=== PATIENT | male | born 1945 | race Caucasian/White ===

== ENCOUNTER 2019-03-29 21:06 | Emergency (ER) | payer MEDICARE, OTHER ==
[~2019-03-29] VITALS: Ht 180.3 cm; Wt 77.1 kg
[2019-03-29 21:20] VITALS: BP 130/66
[2019-03-29] MEDS ORDERED: IBUPROFEN 800 MG (MOTRIN) TAB PO STA (21:26)
[2019-03-29] MEDS ORDERED: NS IV 1000 ML 1,000 ML IV SCH (21:26)
[2019-03-29] MEDS ORDERED: ACETAMINOPHEN 500 MG TAB (TYLENOL) PO PRN (21:30)
--- NOTE | 2019-03-29 21:35 | ED GU-Male ---
General Chief Complaint: - Urinary Stated Complaint: PAIN WHEN URINATING Source: patient, spouse History of Present Illness Date Seen by Provider: Mar 29, 2019 Time Seen by Provider: 21:10 Initial Comments PT ARRIVES VIA POV FROM HOME C/O PAINFUL URINATION, URGENCY, FREQUENCY, SMALL AMOUNTS AND INCONTINENCE HAS HAD DIARRHEA X 2 NO NAUSEA OR VOMITING NO ABDOMINAL PAIN NO BACK PAIN HAS HAD CHILLS AND SUBJECTIVE FEVER--TEMP WAS 101.4 ON ARRIVAL TO ER --STATES HE WAS EVEN HOTTER AT HOME THAN HE IS NOW SYMPTOMS BEGAN AT 1700--STATES HE HAS BEEN FINE ALL DAY HAS NOT TAKEN ANYTHING FOR SYMPTOMS NO HISTORY OF BLADDER, KIDNEY OR PROSTATE PROBLEMS PCP: [facility] IN [place]. DR. Raiza ELIZABETH. Allergies and Home Medications Allergies Coded Allergies: codeine (Verified Allergy, Unknown, 03/29/19) Review of Systems Review of Systems Constitutional: chills, fever, malaise, weakness EENTM: no symptoms reported Respiratory: no symptoms reported; No cough, No short of breath Cardiovascular: no symptoms reported; No chest pain, No edema, No palpitations, No syncope Gastrointestinal: see HPI; No abdominal pain; diarrhea; No loss of appetite, No nausea, No vomiting Genitourinary: see HPI, burning, dysuria, frequency; denies flank pain, denies hematuria; incontinence, pain, urgency Musculoskeletal: no symptoms reported; No back pain, No joint pain Skin: no symptoms reported; No rash Psychiatric/Neurological: No Symptoms Reported Endocrine: No Symptoms Reported Hematologic/Lymphatic: No Symptoms Reported Past [place]-Ipkxpk-Yxltbm Hx Patient Social History Alcohol Use: Denies Use Recreational Drug Use: No Smoking Status: Never a Smoker Recent Foreign Travel: No Contact w/Someone Who Travel: No Past Medical History Surgeries: Yes (LEFT ANKLE FX/ ORIF; INGUINAL HERNIA REPAIR) Abdominal, Orthopedic Respiratory: No Cardiac: Yes High Cholesterol Neurological: No Genitourinary: No Gastrointestinal: Yes Gastroesophageal Reflux Musculoskeletal: Yes (LEFT ANKLE FX/ ORIF) Fractures Endocrine: Yes (VITAMIN D DEFICIENCY) HEENT: No Cancer: No Psychosocial: No Integumentary: No Blood Disorders: No Physical Exam Vital Signs Vital Signs - First Documented 03/29/19 21:10 Temp 101.4 Pulse 87 Resp 18 B/P (MAP) 130/66 (87) Pulse Ox 96 Capillary Refill : Height, Weight, BMI Height: '" Weight: lbs. oz. kg; BMI Method: General Appearance: WD/WN, no apparent distress HEENT: PERRL/EOMI, other (DENTURES) Neck: normal inspection Cardiovascular: regular rate, rhythm, no edema, no JVD, no murmur Respiratory: normal breath sounds, no respiratory distress, no accessory muscle use Gastrointestinal: normal bowel sounds, non tender, soft, no organomegaly, no pulsatile mass Back: normal inspection, no CVA tenderness Extremities: normal range of motion, non-tender, normal inspection, no pedal ed pepper, no calf tenderness, normal capillary refill Neurologic/Psychiatric: sports internship II-XII nml as tested, no motor/sensory deficits, alert, normal mood/affect, oriented x 3, other ([place]) Skin: normal color, warm/dry; No rash Focused Exam Lactate Level 03/29/19 21:28: Lactic Acid Level 1.24 Lactic Acid Level Laboratory Tests Test 03/29/19 21:28 Lactic Acid Level 1.24 MMOL/L (0.50-2.00) Progress/Results/Core Measures Suspected Sepsis SIRS Temperature: Pulse: Respiratory Rate: Laboratory Tests 03/29/19 21:28: White Blood Count 11.9H Blood Pressure / Mean: 03/29/19 21:28: Lactic Acid Level 1.24 Laboratory Tests 03/29/19 21:28: Creatinine 1.32H, INR Comment 1.0, Platelet Count 127L, Total Bilirubin 0.7 Results/Orders Lab Results Laboratory Tests Test 03/29/19 21:28 03/29/19 21:54 Range/Units White Blood Count 11.9 H 4.3-11.0 10^3/uL Red Blood Count 4.94 4.35-5.85 10^6/uL Hemoglobin 15.7 13.3-17.7 G/DL Hematocrit 46 40-54 % Mean Corpuscular Volume 93 80-99 FL Mean Corpuscular Hemoglobin 32 25-34 PG Mean Corpuscular Hemoglobin Concent 34 32-36 G/DL Red Cell Distribution Width 12.6 10.0-14.5 % Platelet Count 127 L 130-400 10^3/uL Mean Platelet Volume 10.2 7.4-10.4 FL Neutrophils (%) (Auto) 89 H 42-75 % Lymphocytes (%) (Auto) 4 L 12-44 % Monocytes (%) (Auto) 6 0-12 % Eosinophils (%) (Auto) 1 0-10 % Basophils (%) (Auto) 0 0-10 % Neutrophils # (Auto) 10.6 H 1.8-7.8 X 10^3 Lymphocytes # (Auto) 0.5 L 1.0-4.0 X 10^3 Monocytes # (Auto) 0.7 0.0-1.0 X 10^3 Eosinophils # (Auto) 0.1 0.0-0.3 10^3/uL Basophils # (Auto) 0.0 0.0-0.1 10^3/uL Neutrophils % (Manual) 80 % Lymphocytes % (Manual) 3 % Monocytes % (Manual) 2 % Eosinophils % (Manual) 0 % Basophils % (Manual) 0 % Band Neutrophils 14 % Reactive Lymphocytes 1 % Blood Morphology Comment NORMAL Prothrombin Time 13.6 12.2-14.7 SEC INR Comment 1.0 0.8-1.4 Activated Partial Thromboplast Time 33 24-35 SEC Sodium Level 138 135-145 MMOL/L Potassium Level 3.9 3.6-5.0 MMOL/L Chloride Level 101 98-107 MMOL/L Carbon Dioxide Level 25 21-32 MMOL/L Anion Gap 12 5-14 MMOL/L Blood Urea Nitrogen 17 7-18 MG/DL Creatinine 1.32 H 0.60-1.30 MG/DL Estimat Glomerular Filtration Rate 53 BUN/Creatinine Ratio 13 Glucose Level 118 H 70-105 MG/DL Lactic Acid Level 1.24 0.50-2.00 MMOL/L Calcium Level 9.6 8.5-10.1 MG/DL Corrected Calcium 8.5-10.1 MG/DL Magnesium Level 1.7 1.6-2.4 MG/DL Total Bilirubin 0.7 0.1-1.0 MG/DL Aspartate Amino Transf (AST/SGOT) 27 5-34 U/L Alanine Aminotransferase (ALT/SGPT) 36 0-55 U/L Alkaline Phosphatase 42 40-136 U/L Total Protein 7.2 6.4-8.2 GM/DL Albumin 4.6 H 3.2-4.5 GM/DL Amylase Level 51 25-125 U/L Lipase 30 8-78 U/L Urine Color YELLOW Urine Clarity SL CLOUDY Urine pH 6 5-9 Urine Specific [place] 1.010 L 1.016-1.022 Urine Protein 1+ H NEGATIVE Urine Glucose (UA) NEGATIVE NEGATIVE Urine Ketones 1+ H NEGATIVE Urine Nitrite NEGATIVE NEGATIVE Urine Bilirubin NEGATIVE NEGATIVE Urine Urobilinogen NORMAL NORMAL MG/DL Urine Leukocyte Esterase 3+ H NEGATIVE Urine RBC (Auto) 4+ H NEGATIVE Urine RBC RARE /HPF Urine WBC 50-100 H /HPF Urine Squamous Epithelial Cells RARE /HPF Urine Crystals NONE /LPF Urine Bacteria FEW H /HPF Urine Casts NONE /LPF Urine Mucus NEGATIVE /LPF Urine Culture Indicated CULTURE PENDING My Orders Orders - JORGE ROBLEDO DO Bladder Scan (03/29/19 21:14) Ua Culture If Indicated (03/29/19:14) Cbc With Automated Diff (03/29/19:) Comprehensive Metabolic Panel (03/29/19:) Blood Culture (03/29/19:) Urinalysis (03/29/19:) Urine Culture (03/29/19:) Protime With Inr (03/29/19:) Partial Thromboplastin Time (03/29/19:) Acetaminophen Tablet (Tylenol Tablet) (03/29/19 21:30) Ed Iv/Invasive Line Start (03/29/19:26) Ed Iv/Invasive Line Start (03/29/19:26) Vital Signs Adult Sepsis Patie Q15M (03/29/19 21:26) Remove Rings In Anticipation O (03/29/19:26) Lactic Acid Analyzer (03/29/19:) Amylase (03/29/19:) Lipase (03/29/19:) Magnesium (03/29/19:26) Ct Abd/Pelvis Wo(Kidney Stone) (03/29/19 21:26) Ed Iv/Invasive Line Start (03/29/19:26) Ns Iv 1000 Ml (Sodium Chloride 0.9%) (03/29/19:26) Ibuprofen Tablet (Motrin Tablet) (03/29/19 21:26) Acute Abd Series (03/29/19 21:26) Manual Differential (03/29/19 21:28) Ceftriaxone For Iv Use (Rocephin For I (03/29/19 22:15) Tamsulosin Capsule (Flomax Capsule) (03/29/19 22:15) Phenazopyridine Tablet (Pyridium Tablet) (03/29/19 22:15) Ed Iv/Invasive Line Start (03/29/19 22:18) Lactated Ringers (Lr 1000 Ml Iv Solution (03/29/19 22:18) Medications Given in ED Current Medications Medications Dose Ordered Sig/Laura Route Start Time Stop Time Status Last Admin Dose Admin Acetaminophen 1,000 mg ONCE PRN PO 03/29/19 21:30 03/29/19 21:35 DC 03/29/19 21:35 1,000 MG Vital Signs/I&O 03/29/19 03/29/19 03/29/19 21:10 21:20 21:20 Temp 101.4 101.4 101.4 Pulse 87 87 87 Resp 18 18 18 B/P (MAP) 130/66 (87) 130/66 130/66 (87) Pulse Ox 96 96 87 Capillary Refill : Progress Note : Progress Note PT INCONTINENT OF URINE ON THE WAY INTO ER BLADDER SCAN ON ARRIVAL--18 ML URINE IN BLADDER Diagnostic Imaging Comments ACUTE ABDOMEN XRAYS CT ABDOMEN/ PELVIS-- PER RADIOLOGIST REPORTS AT 221 Reviewed: Reviewed by Me Departure Impression Primary Impression: Urinary tract infection Disposition: HOME, SELF-CARE Condition: Improved Departure-Patient Inst. Referrals: ALEXI ELIZABETH MD (PCP/Family) Primary Care Physician Patient Instructions: Urinary Tract Infection, Adult (DC) Add. Discharge Instructions: LOTS OF CLEAR LIQUIDS TYLENOL AND MOTRIN NEEDED FOR PAIN OR FEVER FOLLOW UP WITH YOUR DR ON MONDAY FOR FURTHER CARE, RETURN TO ER IF WORSE All discharge instructions reviewed with patient and/or family. Voiced understanding. Scripts Phenazopyridine HCl (Pyridium) 200 Mg Tablet 1 TAB PO TID for BLADDER DISCOMFORT, #15 TAB Prov: VENKAT,JORGE K DO 03/29/19 Tamsulosin HCl (Flomax) 0.4 Mg Cap 0.4 MG PO DAILY, #10 CAP Prov: VENKAT,JORGE K DO 03/29/19 Sulfamethoxazole/Trimethoprim (Bactrim Ds Tablet) 1 Each Tablet 1 EACH PO BID, #20 TAB Prov: VENKAT,JORGE K DO 03/29/19 VENKATJORGE K DO Mar 29, 2019 21:35
[2019-03-29 21:37] LABS: BASOPHILS % (AUTO) 0 % (0-10); EOSINOPHILS # (AUTO) 0.1 10^3/uL (0.0-0.3); EOSINOPHILS % (AUTO) 1 % (0-10); HEMATOCRIT 46 % (40-54); HEMOGLOBIN 15.7 G/DL (13.3-17.7); LYMPHOCYTES # (AUTO) 0.5 X 10^3 (1.0-4.0); LYMPHOCYTES % (AUTO) 4 % (12-44); MEAN CORPUSCULAR HEMOGLOBIN 32 PG (25-34); MEAN CORPUSCULAR HGB CONC 34 G/DL (32-36); MEAN CORPUSCULAR VOLUME 93 FL (80-99); MEAN PLATELET VOLUME 10.2 FL (7.4-10.4); MONOCYTES # (AUTO) 0.7 X 10^3 (0.0-1.0); MONOCYTES % (AUTO) 6 % (0-12); NEUTROPHILS # (AUTO) 10.6 X 10^3 (1.8-7.8); NEUTROPHILS % (AUTO) 89 % (42-75); PLATELET COUNT 127 10^3/uL (130-400); RED CELL DISTRIBUTION WIDTH 12.6 % (10.0-14.5); WHITE BLOOD COUNT 11.9 10^3/uL (4.3-11.0)
[2019-03-29 21:51] LABS: PROTHROMBIN TIME PATIENT 13.6 SEC (12.2-14.7)
[2019-03-29 21:54] LABS: BAND NEUTROPHILS 14 %; BASOPHILS % (MANUAL) 0 %; EOSINOPHILS % (MANUAL) 0 %; LYMPHOCYTES % (MANUAL) 3 %; MONOCYTES % (MANUAL) 2 %; NEUTROPHILS % (MANUAL) 80 %; RBC MORPH NORMAL; REACTIVE LYMPHOCYTES 1 %
[2019-03-29 22:00] LABS: ALANINE AMINOTRANSFERASE 36 U/L (0-55); ALBUMIN 4.6 GM/DL (3.2-4.5); ALKALINE PHOSPHATASE 42 U/L (40-136); AMYLASE 51 U/L (25-125); BILIRUBIN,TOTAL 0.7 MG/DL (0.1-1.0); BUN/CREATININE RATIO 13; CALCIUM 9.6 MG/DL (8.5-10.1); CARBON DIOXIDE 25 MMOL/L (21-32); CHLORIDE 101 MMOL/L (98-107); CREATININE SERUM 1.32 MG/DL (0.60-1.30); GFR ESTIMATED 53; GLUCOSE 118 MG/DL (70-105); LIPASE 30 U/L (8-78); MAGNESIUM 1.7 MG/DL (1.6-2.4); POTASSIUM 3.9 MMOL/L (3.6-5.0); SODIUM 138 MMOL/L (135-145); TOTAL PROTEIN 7.2 GM/DL (6.4-8.2)
[2019-03-29 22:01] LABS: BILIRUBIN,URINE NEGATIVE (NEGATIVE); GLUCOSE, URINE (UA) NEGATIVE (NEGATIVE); KETONES,URINE 1+ (NEGATIVE); LEUKOCYTE ESTERASE ,URINE 3+ (NEGATIVE); NITRITE,URINE NEGATIVE (NEGATIVE); PH,URINE 6 (5-9); PROTEIN,URINE 1+ (NEGATIVE); UROBILINOGEN,URINE NORMAL (NORMAL)
[2019-03-29 22:02] LABS: CLARITY,URINE SL CLOUDY; COLOR,URINE YELLOW
[2019-03-29 22:06] LABS: BACTERIA,URINE FEW /HPF; RBC,URINE RARE /HPF; WBC,URINE 50-100 /HPF
--- NOTE | 2019-03-29 22:06 | Diagnostic Imaging Report ---
PROCEDURE: CT urinary tract, rule out kidney stone. TECHNIQUE: Multiple contiguous axial images were obtained through the abdomen and pelvis without the use of intravenous contrast. Auto Exposure Controls were utilized during the CT exam to meet ALARA standards for radiation dose reduction. INDICATION: Painful urination. FINDINGS: The lung bases demonstrate some minimal dependent atelectasis but otherwise are clear. There is no effusion. Liver demonstrates no evidence of a focal abnormality. The gallbladder is nondistended. There is no radiodense gallstone or biliary dilatation. The spleen is unremarkable. Note is made of a left-sided Bochdalek hernia. There is no adrenal mass. The kidneys are nonobstructed. There are no findings of urolithiasis. There is no hydronephrosis. The pancreas is unremarkable. The small and large bowel are normal in caliber without evidence of obstruction. There is no focal abnormal bowel thickening. Uncomplicated diverticulosis is noted. There are surgical clips that appear to be related to a prior left-sided inguinal hernia repair. There do, however, continue to be apparent bilateral fat-containing inguinal hernias. These contain no loop of bowel Urinary bladder is unremarkable. The prostate is mildly enlarged. There is no pathologic abdominal or pelvic lymphadenopathy. Aorta is normal in caliber. There is no acute or suspicious osseous abnormality. IMPRESSION: 1. No CT evidence of an acute inflammatory or obstructive process within the abdomen or pelvis. 2. No CT findings of urolithiasis. 3. Left-sided Bochdalek hernia. There also appear to be fat-containing inguinal hernias. 4. Uncomplicated diverticulosis. There are no findings of bowel obstruction. 5. No free fluid or focal inflammation within the omentum or mesentery. 6. Prostatic enlargement. Dictated by: Dictated on workstation # [id number]
[2019-03-29 22:07] LABS: SQUAMOUS EPITHELIAL CELL,UR RARE /HPF
--- NOTE | 2019-03-29 22:11 | Diagnostic Imaging Report ---
INDICATION: Painful urination. FINDINGS: The lungs appear clear without focal infiltrate or effusion. There is no pneumothorax. Heart size and mediastinal contours appear appropriate. Pulmonary vascularity appears normal. Images of the abdomen and pelvis demonstrate no evidence of bowel obstruction. There are clips related to prior left inguinal hernia repair. There is no unexpected calcification. There is a phlebolith in the right pelvis. IMPRESSION: 1. No radiographic evidence of an acute cardiopulmonary process 2. No evidence of bowel obstruction 3. No unexpected abdominal or pelvic calcifications. Dictated by: Dictated on workstation # [id number]
[2019-03-29] MEDS ORDERED: PHENAZOPYRIDINE 100 MG (PYRIDIUM) TABLET PO ONE (22:15)
[2019-03-29] MEDS ORDERED: cefTRIAXone FOR IV USE 1,000 MG in WATER (STERILE) FOR INJECTION 10 ML IV ONE (22:15)
[2019-03-29] MEDS ORDERED: TAMSULOSIN 0.4 MG (FLOMAX) CAP PO SCH (22:15)
[2019-03-29] MEDS ORDERED: LACTATED RINGERS 1,000 ML IV ONE (22:18)
[2019-03-29] MEDS ORDERED: PHEN-640 PO (22:40)
[2019-03-29] MEDS ORDERED: SULF1TAB35 PO (22:40)
[2019-03-29] MEDS ORDERED: TAMS0.4C98 PO (22:40)
[2019-03-29 22:58] VITALS: BP 112/59
== END 2019-03-29 22:57 | disposition home or self-care (01) ==
LOC: ER 21:09
DX: N39.0 Urinary tract infection, site not specified (principal); E78.00 Pure hypercholesterolemia, unspecified; K21.9 Gastro-esophageal reflux disease without esophagitis; Z88.5 Allergy status to narcotic agent; Z98.890 Other specified postprocedural states
CPT/HCPCS: 36415; 74022; 74176; 80053; 81000; 82150; 83605; 83690; 83735; 85007; 85027; 85610; 85730; 87040; 87077; 87088; 87186; 96361; 96374